=== PATIENT | female | born 1975 | race Caucasian/White ===

== ENCOUNTER 2020-02-24 09:14 | Day surgery (SDC) | payer BC, SELFPAY ==
[~2020-02-24] VITALS: Ht 157.5 cm; Wt 72.6 kg
[2020-02-24] MEDS ORDERED: BUPIVACAINE-MPF 0.25% 30 ML VIAL INJ ONE (09:28)
[2020-02-24] MEDS ORDERED: LIDOCAINE 1% 500 MG/50 ML VIAL ONE (09:28)
[2020-02-24] MEDS ORDERED: HYDROcodone/APAP 5/325 MG 1 TAB TAB PO PRN (10:45)
== END 2020-02-24 10:40 | disposition home or self-care (01) ==
LOC: MDS 09:14 → MMU 09:14 → MDS 10:40
PROVIDERS: ATTEND Surgery
DX: N63.21 Unspecified lump in the left breast, upper outer quadrant (principal); N60.82 Other benign mammary dysplasias of left breast; Z90.710 Acquired absence of both cervix and uterus
CPT/HCPCS: 19000; 19001; 36415; 76942; 87635; 88305; J2001; J3490; Q0092